=== PATIENT | female | born 1950 | race African-American/Black ===

== ENCOUNTER 2017-12-18 13:21 | Emergency (ER) | payer OTHER ==
--- OUTSIDE RECORDS SUMMARY | 2017-12-18 13:23 | XMS REPORT | Clinical Summary ---
:1950 Author Organization [facility] Address [address] [place] [address] Care Team Providers Name Role Phone Asked, No Pcp Primary Care Provider Unavailable Allergies Not on File Current Medications Not on file Active Problems Not on file Social History Tobacco Use Types Packs/Day Years Used Date Never Assessed Sex Assigned at Date Recorded Not on file Last Filed Vital Signs Not on file Plan of Treatment Health Maintenance Due Date Last Done Comments BREAST CANCER SCREENING 10/18/2001 COLON CANCER SCREENING 10/18/2001 SHINGRIX VACCINE (#1) 10/18/2001 ZOSTER VACCINE 2011 PNEUMOCOCCAL POLYSACCHARIDE VACCINE AGE 65 AND OVER 10/18/2016 PNEUMOCOCCAL-13 10/18/2016 INFLUENZA VACCINE 11/04/2017 Results Not on fileafter 12/17/2016 Insurance Payer Benefit Plan / Group Subscriber ID Type Phone Address [employer] PPO xxxxxxxxxxx PPO [phone] [id number]
[2017-12-18] MEDS ORDERED: ONDANSETRON 4 MG/2 ML VIAL ONE (14:13)
[2017-12-18 14:50] LABS: Absolute Lymphocytes (CBC) 1.6 K/uL (0.7-4.9); Absolute Monocytes 0.6 K/uL (0.1-1.3); Absolute Neutrophil 3.8 K/uL (1.8-8.0); Basophils % 0.5 % (0-1.3); Eosinophils % 0.4 % (0-4.4); Hematocrit 39.3 % (36.0-45.0); Lymphocytes % 26.1 % (15.3-44.8); MCH 29.9 pg (27.0-35.0); MCV 88.1 fL (80-100); MPV 8.8 fL (7.6-11.3); Monocytes % 9.7 % (3.3-12.3); RBC Red Blood Cell Count 4.46 M/uL (3.86-4.86)
[2017-12-18 15:08] LABS: ALT/SGPT 25 U/L (12-78); AST/SGOT 22 U/L (15-37); Albumin 4.1 g/dL (3.4-5.0); Alkaline Phosphatase 59 U/L (45-117); BUN Blood Urea Nitrogen 11 mg/dL (7-18); Bicarbonate 29 mmol/L (21-32); Bilirubin Direct 0.1 mg/dL (0-0.2); Bilirubin Total 0.4 mg/dL (0.2-1.0); CKMB Creatine Kinase MB 1.5 ng/mL (0.3-3.6); Creatine Phosphokinase 138 U/L (26-192); Glucose Level 83 mg/dL (74-106); Magnesium 2.1 mg/dL (1.8-2.4); NT PRO-BNP 82 pg/mL (<125); Potassium 3.8 mmol/L (3.5-5.1); Protein, Total 7.7 g/dL (6.4-8.2); Sodium Level 140 mmol/L (136-145); Troponin (Emerg Dept Use Only) < 0.02 ng/mL (0.0-0.045)
[2017-12-18 15:24] LABS: Protime INR 1.02
--- NOTE | 2017-12-18 15:42 | RAD REPORT ---
EXAM DESCRIPTION: CT - Head C Spine Cap Jeff Mei - 12/18/2017 3:28 pm CLINICAL HISTORY: Fall, head, neck, chest and abdomen pain COMPARISON: CT head September 2014 TECHNIQUE: Axial [address] head images were obtained. Axial [address] cervical spine images were obtaine d with sagittal and coronal reconstruction images reviewed. During dynamic enhancement of 100mL non-i onic contrast, axial 5 mm images of the chest, abdomen and pelvis were obtained. All CT scans are performed using dose optimization technique as appropriate and may include automated exposure control or mA/KV adjustment according to patient size. FINDINGS: No intracranial hemorrhage, mass or edema. No midline shift or abnormal fluid collection. Mastoid air cells and paranasal sinuses are clear. No skull fracture. CT cervical spine imaging shows normal height. No subluxation abnormality. No disc space narrowing se en. There is posterior endplate spurring and calcification changes at C5-6 and C6-7. C6-7 is borderli ne to mildly stenotic in the central canal. No significant foraminal encroachment. No paraspinal mass or hematoma seen. Central canal detail is inherently limited. Concerns for traumatic disc herniation or traumatic cord injury can be further addressed with MR imaging. CT chest shows no pneumothorax, pulmonary contusion or pleural fluid collection. No mediastinal hemat supriya and the aorta and pulmonary arteries are unremarkable. No chest will mass or abnormal axillary fi nding. No displaced rib fracture or other significant bony finding. Patient has significant disc and endplate degenerative changes at T11-12. CT abdomen and pelvis show no injury to solid abdominal viscera. Gallbladder and biliary tree are unr emarkable. No bowel injury or significant finding. No free air or pneumatosis. There is a trace amoun t of fluid in the cul-de-sac. Attenuation does not suggest that this is intraperitoneal blood. There is no abnormality as a source for fluid. Uterus is absent. Ovaries are absent or atrophic. No urinary bladder abnormality. Bladder is mostly contracted. Phleboliths are present. Lumbar disc and bony degenerative changes are present. No pathologic or acute bone process. IMPRESSION: No hemorrhage, edema or acute CT Head finding. Degenerative change without fracture. Borderline to mild central spinal stenosis present at C6-7. No acute CT chest finding. No acute CT abdomen or pelvis finding. The trace amount of free fluid in the cul-de-sac is not suspec stacy to be blood. An acute abdominal or pelvic process is not identifiable.
--- NOTE | 2017-12-18 15:44 | ER ---
Nurse's Notes [facility] Name: Malia Mattson Age: 67 yrs Sex: Female : 1950 Arrival Date: 12/18/2017 Time: 13:27 Bed 5 Private MD: None, None Diagnosis: Fall due to bumping against object;Pain in right shoulder;Pain in right hip Presentation: 12/18 13:32 Presenting complaint: Patient states: Reports fall after missing 1 step at 0900 this aj morning and fell onto bottom. Reports pain all over. Care prior to arrival: None. Mechanism of Injury: Fall from standing position. Trauma event details: Injury occurred in the [facility], Injury occurred: in a public building. Injury occurred: December 18, 2017 Injury occurred at: 09:00. 13:32 Acuity: RONALD 2 aj 13:32 Method Of Arrival: Ambulatory aj 14:00 Transition of care: patient was not received from another setting of care. Onset of jl7 symptoms was December 18, 2017 at 09:00. Risk Assessment: Do you want to hurt yourself or someone else? Patient reports no desire to harm self or others. Initial Sepsis Screen: Does the patient meet any 2 criteria? No. Patient's initial sepsis screen is negative. Does the patient have a suspected source of infection? No. Patient's initial sepsis screen is negative. Trauma Activation: Not Applicable Physician: ED Physician; Name: ; Notified At: ; Arrived At: Physician: General Surgeon; Name: ; Notified At: ; Arrived At: Physician: Radiology; Name: ; Notified At: ; Arrived At: Physician: Respiratory; Name: ; Notified At: ; Arrived At: Physician: Lab; Name: ; Notified At: ; Arrived At: Historical: - Allergies: 13:37 No Known Drug Allergies; aj - Home Meds: 13:37 alprazolam 0.5 mg Oral tab as needed [Active]; atorvastatin 10 mg oral tab 1 tab once aj daily [Active]; candesartan 32 mg oral tab 1 tab once daily [Active]; citalopram 20 mg tab 1 tab once daily [Active]; diltiazem HCl 120 mg Oral cpER 1 cap once daily [Active]; meclizine 25 mg Oral tab 1 tab [Active]; promethazine 25 mg Oral tab 1 tab once daily [Active]; sumatriptan 100 mg as needed [Active]; - PMHx: 13:37 Anxiety; Hyperlipidemia; Hypertension; aj - PSHx: 13:37 Hysterectomy; aj - Immunization history: Last tetanus immunization: - up to date. - Social history:: Smoking status: Patient uses tobacco products. - Ebola Screening: : Patient negative for fever greater than or equal to 101.5 degrees Fahrenheit, and additional compatible Ebola Virus Disease symptoms Patient denies exposure to infectious person Patient denies travel to an Ebola-affected area in the 21 days before illness onset No symptoms or risks identified at this time. - Family history:: not pertinent. Screenin:00 Fall Risk Fall in past 12 months (25 points). IV access (20 points). Total Coyle Fall jl7 Scale indicates High Risk Score (45 or more points). Fall prevention measures have been instituted. Side Rails Up X 2 Placed Close to Nursing Station Frequent Obs/Assessments Occuring As available patient and family educated on Fall Prevention Program and Strategies. 14:37 Abuse screen: Denies threats or abuse. Denies injuries from another. Nutritional jl7 screening: No deficits noted. Tuberculosis screening: No symptoms or risk factors identified. Primary Survey: 13:32 A: Airway: patent. Breathing/Chest: Respiratory pattern: regular, Respiratory effort: aj spontaneous, unlabored. Circulation: Skin color: pink, Skin temperature: warm, dry. Disability Alert. 14:00 Reassessment Airway Airway Patent Breathing/Chest Respiratory pattern Regular jl7 Respiratory effort Spontaneous Unlabored Circulation Color Eland. Secondary Survey: 14:00 HEENT: No deficits noted. Gastrointestinal: No deficits noted. : No deficits noted. jl7 Musculoskeletal: Range of motion: intact in all extremities, Swelling present in palmar aspect of right forearm Tenderness present in lumbar area, right mid back and right low back Reports pain in right shoulder, right forearm, right hip, mid back to lower back and over to the right side of the mid and lower back. Assessment: 13:32 General: Appears in no apparent distress. comfortable, Behavior is calm, cooperative, aj appropriate for age. Pain: Complains of pain in scalp, back and buttocks. Neuro: Level of Consciousness is awake, alert, obeys commands, Oriented to person, place, time, situation, Appropriate for age. Respiratory: Airway is patent Respiratory effort is even, unlabored, Respiratory pattern is regular, symmetrical. Derm: Skin is intact, is healthy with good turgor, Skin is pink, warm \T\ dry. normal. Musculoskeletal: Reports pain in scalp, back and buttocks. 15:45 Reassessment: Pt will be discharged once radiology results are back. jl7 16:21 Reassessment: Pt reports increased pain, provider notified of pain and BP, see MAR for jl7 orders. Pt denies urinary symptoms, refuses urine culture at this time. Vital Signs: 13:32 BP 185 / 95; Pulse 76; Resp 15; Temp 97.4; Pulse Ox 98% on R/A; Weight 63.5 kg; Height aj 5 ft. 3 in. (160.02 cm); 14:00 BP 195 / 97; Pulse 67; Resp 18; Pulse Ox 96% ; Pain 9/10; jl7 14:30 BP 177 / 83; Pulse 62; Resp 16 S; Pulse Ox 96% on R/A; Pain 7/10; jl7 15:58 BP 187 / 84; Pulse 62; Resp 16 S; Pulse Ox 97% on R/A; jl7 16:20 BP 191 / 91; Pulse 67; Resp 16 S; Pulse Ox 100% on R/A; Pain 9/10; jl7 13:32 Body Mass Index 24.80 (63.50 kg, 160.02 cm) aj Margarito Coma Score: 13:32 Eye Response: spontaneous(4). Verbal Response: oriented(5). Motor Response: obeys aj commands(6). Total: 15. Trauma Score (Adult): 13:32 Eye Response: spontaneous(1); Verbal Response: oriented(1); Motor Response: obeys aj commands(2); Systolic BP: > 89 mm Hg(4); Respiratory Rate: 10 to 29 per min(4); Margarito Score: 15; Trauma Score: 12 ED Course: 13:27 Patient arrived in ED. mr 13:28 None, None is Private Physician. mr 13:33 Triage completed. aj 13:37 Arm band placed on left wrist. Patient placed in waiting room, Patient notified of wait aj time. 13:57 Heidi Nazario, JEREMY is Primary Nurse. jl7 14:00 Patient maintains SpO2 saturation greater than 95% on room air. Thermoregulation: warm jl7 blanket given to patient. 14:04 Darrell Norris MD is Attending Physician. demarco 14:26 Initial lab(s) drawn, by me, sent to lab. Inserted saline lock: 22 gauge in left jl7 antecubital area, using aseptic technique. Blood collected. 14:37 Patient has correct armband on for positive identification. Bed in low position. Call jl7 light in reach. Side rails up X2. 14:38 EKG done, by reliability technologist. reviewed by Darrell Norris MD. 3 14:50 Radiology exam delayed due to lab results not completed at this time. (BUN/Creatinine). sj 15:11 XRAY Chest (1 view) In Process Unspecified. EDMS 15:11 Shoulder Right (2 View) XRAY In Process Unspecified. EDMS 15:11 Forearm Right XRAY In Process Unspecified. EDMS 15:11 Pelvis XRAY In Process Unspecified. EDMS 15:11 Hip Right 2 View XRAY In Process Unspecified. EDMS 15:28 CT Traumagram (Head C Spine CAP W Con) In Process Unspecified. EDMS 16:23 No provider procedures requiring assistance completed. IV discontinued, intact, jl7 bleeding controlled, No redness/swelling at site. Pressure dressing applied. Administered Medications: 14:19 Drug: Zofran 4 mg Route: IVP; Site: left antecubital; jl7 14:37 Follow up: Response: No adverse reaction jl7 14:21 Drug: fentaNYL (PF) 50 mcg Route: IVP; Site: left antecubital; jl7 14:37 Follow up: Response: No adverse reaction; Pain is decreased jl7 16:19 Drug: Jbphh 10 mg-325 mg 1 tabs Route: PO; jl7 16:19 Follow up: Response: Medication administered at discharge. jl7 16:24 Not Given (pt to CT then dc'd): NS 0.9% 1000 ml IV at 125 ml/hr continuous jl7 Intake: 16:20 PO: 0ml; Total: 0ml. jl7 Output: 16:20 Urine: 0ml; Total: 0ml. jl7 Outcome: 15:43 Discharge ordered by . demarco 16:22 Discharged to home ambulatory, with family. jl7 16:22 Condition: stable 16:22 Discharge instructions given to patient, Instructed on discharge instructions, follow up and referral plans. medication usage, Demonstrated understanding of instructions, follow-up care, medications, Prescriptions given X 2. 16:22 Patient's length of stay was not longer than 2 hours. 16:24 Patient left the ED. jl7 Signatures: Dispatcher [employer] EDFunmilayo Tapia, Darrell Rodriguez RN, MD MD cha Rivera, Maria mr Jones, Heidi Camargo RN RN jl7 Shonda Godoy 3 Corrections: (The following items were deleted from the chart) 14:37 12:19 Zofran 4 mg IVP in left antecubital sen jl7
--- NOTE | 2017-12-18 15:44 | EDPHYS ---
Physician Documentation [facility] Name: Malia Mattson Age: 67 yrs Sex: Female : 1950 Arrival Date: 12/18/2017 Time: 13:27 Bed 5 Private MD: None, None ED Physician Darrell Norris HPI: 12/18 14:48 This 67 yrs old Black Female presents to ER via Ambulatory with complaints of Fall demarco Injury. 14:48 Details of fall: The patient fell from an upright position, while walking. Onset: The demarco symptoms/episode began/occurred just prior to arrival. Associated injuries: The patient sustained injury to the head, neck injury, upper back injury, injury to the low back, right hip, decreased range of motion, painful injury. Severity of symptoms: At their worst the symptoms were mild, moderate, in the emergency department the symptoms are unchanged. The patient has not experienced similar symptoms in the past. Historical: - Allergies: 13:37 No Known Drug Allergies; aj - Home Meds: 13:37 alprazolam 0.5 mg Oral tab as needed [Active]; atorvastatin 10 mg oral tab 1 tab once aj daily [Active]; candesartan 32 mg oral tab 1 tab once daily [Active]; citalopram 20 mg tab 1 tab once daily [Active]; diltiazem HCl 120 mg Oral cpER 1 cap once daily [Active]; meclizine 25 mg Oral tab 1 tab [Active]; promethazine 25 mg Oral tab 1 tab once daily [Active]; sumatriptan 100 mg as needed [Active]; - PMHx: 13:37 Anxiety; Hyperlipidemia; Hypertension; aj - PSHx: 13:37 Hysterectomy; aj - Immunization history: Last tetanus immunization: - up to date. - Social history:: Smoking status: Patient uses tobacco products. - Ebola Screening: : Patient negative for fever greater than or equal to 101.5 degrees Fahrenheit, and additional compatible Ebola Virus Disease symptoms Patient denies exposure to infectious person Patient denies travel to an Ebola-affected area in the 21 days before illness onset No symptoms or risks identified at this time. - Family history:: not pertinent. ROS: 14:48 Constitutional: Negative for fever, chills, and weight loss, Eyes: Negative for injury, demarco pain, redness, and discharge, ENT: Negative for injury, pain, and discharge, Neck: Negative for injury, pain, and swelling, Cardiovascular: Negative for chest pain, palpitations, and edema, Respiratory: Negative for shortness of breath, cough, wheezing, and pleuritic chest pain, Back: Negative for injury and pain, : Negative for injury, bleeding, discharge, and swelling, Skin: Negative for injury, rash, and discoloration, Neuro: Negative for headache, weakness, numbness, tingling, and seizure, Psych: Negative for depression, anxiety, suicide ideation, homicidal ideation, and hallucinations, Allergy/Immunology: Negative for hives, rash, and allergies, Endocrine: Negative for neck swelling, polydipsia, polyuria, polyphagia, and marked weight changes, Hematologic/Lymphatic: Negative for swollen nodes, abnormal bleeding, and unusual bruising. 14:48 Abdomen/GI: Positive for abdominal pain, of the right upper quadrant and right lower quadrant. Exam: 14:48 Constitutional: This is a well developed, well nourished patient who is awake, alert, demarco and in no acute distress. Head/Face: Normocephalic, atraumatic. Eyes: Pupils equal round and reactive to light, extra-ocular motions intact. Lids and lashes normal. Conjunctiva and sclera are non-icteric and not injected. Cornea within normal limits. Periorbital areas with no swelling, redness, or edema. ENT: Nares patent. No nasal discharge, no septal abnormalities noted. Tympanic membranes are normal and external auditory canals are clear. Oropharynx with no redness, swelling, or masses, exudates, or evidence of obstruction, uvula midline. Mucous membranes moist. Chest/axilla: Normal chest wall appearance and motion. Nontender with no deformity. No lesions are appreciated. Cardiovascular: Regular rate and rhythm with a normal S1 and S2. No gallops, murmurs, or rubs. Normal PMI, no JVD. No pulse deficits. Respiratory: Lungs have equal breath sounds bilaterally, clear to auscultation and percussion. No rales, rhonchi or wheezes noted. No increased work of breathing, no retractions or nasal flaring. Female : Normal external genitalia. Skin: Warm, dry with normal turgor. Normal color with no rashes, no lesions, and no evidence of cellulitis. Neuro: Awake and alert, GCS 15, oriented to person, place, time, and situation. Cranial nerves II-XII grossly intact. Motor strength 5/5 in all extremities. Sensory grossly intact. Cerebellar exam normal. Normal gait. Psych: Awake, alert, with orientation to person, place and time. Behavior, mood, and affect are within normal limits. 14:48 Neck: External neck: is normal, C-spine: no acute changes, Thyroid: appears normal, Trachea: is midline with no obvious abnormalities, ROM/movement: pain, limited range of motion, that is mild. 14:48 Abdomen/GI: Inspection: abdomen appears normal, Bowel sounds: normal, Palpation: mild abdominal tenderness, in the right upper quadrant and right lower quadrant, Liver: no appreciated palpable abnormalities, Hernia: not appreciated. Vital Signs: 13:32 BP 185 / 95; Pulse 76; Resp 15; Temp 97.4; Pulse Ox 98% on R/A; Weight 63.5 kg; Height aj 5 ft. 3 in. (160.02 cm); 14:00 BP 195 / 97; Pulse 67; Resp 18; Pulse Ox 96% ; Pain 9/10; jl7 14:30 BP 177 / 83; Pulse 62; Resp 16 S; Pulse Ox 96% on R/A; Pain 7/10; jl7 15:58 BP 187 / 84; Pulse 62; Resp 16 S; Pulse Ox 97% on R/A; jl7 16:20 BP 191 / 91; Pulse 67; Resp 16 S; Pulse Ox 100% on R/A; Pain 9/10; jl7 13:32 Body Mass Index 24.80 (63.50 kg, 160.02 cm) Sheridan Coma Score: 13:32 Eye Response: spontaneous(4). Verbal Response: oriented(5). Motor Response: obeys aj commands(6). Total: 15. Trauma Score (Adult): 13:32 Eye Response: spontaneous(1); Verbal Response: oriented(1); Motor Response: obeys aj commands(2); Systolic BP: > 89 mm Hg(4); Respiratory Rate: 10 to 29 per min(4); Sheridan Score: 15; Trauma Score: 12 MDM: 14:04 Patient medically screened. [facility] 14:48 Data reviewed: vital signs, nurses notes, lab test result(s), EKG, radiologic studies, [facility] CT scan, plain films. 09/14 14:09 Order name: Basic Metabolic Panel; Complete Time: 15:40 [facility] 12/18 14:09 Order name: CBC with Diff; Complete Time: 15:40 [facility] 12/18 14:09 Order name: Ckmb; Complete Time: 15:40 [facility] 12/18 14:09 Order name: CPK; Complete Time: 15:40 [facility] 12/18 14:09 Order name: LFT's; Complete Time: 15:40 [facility] 12/18 14:09 Order name: Magnesium; Complete Time: 15:40 [facility] 12/18 14:09 Order name: NT PRO-BNP; Complete Time: 15:40 [facility] 12/18 14:09 Order name: PT-INR; Complete Time: 15:40 [facility] 12/18 14:09 Order name: Ptt, Activated; Complete Time: 15:40 [facility] 12/18 14:09 Order name: Troponin (emerg Dept Use Only); Complete Time: 15:40 [facility] 12/18 14:09 Order name: XRAY Chest (1 view); Complete Time: 16:04 [facility] 12/18 14:09 Order name: Shoulder Right (2 View) XRAY; Complete Time: 16:04 [facility] 12/18 14:09 Order name: Forearm Right XRAY; Complete Time: 16:04 [facility] 12/18 14:09 Order name: EKG; Complete Time: 14:09 [facility] 12/18 14:09 Order name: Cardiac monitoring; Complete Time: 14:26 [facility] 12/18 14:09 Order name: EKG - Nurse/Tech; Complete Time: 14:26 [facility] 12/18 14:09 Order name: IV Saline Lock; Complete Time: 14:26 [facility] 12/18 14:09 Order name: Labs collected and sent; Complete Time: 14:26 [facility] 12/18 14:09 Order name: O2 Per Protocol; Complete Time: 14:26 [facility] 12/18 14:09 Order name: O2 Sat Monitoring; Complete Time: 14:26 [facility] 12/18 14:09 Order name: Pelvis XRAY; Complete Time: 16:04 [facility] 12/18 14:09 Order name: Hip Right 2 View XRAY; Complete Time: 16:04 [facility] 12/18 14:09 Order name: CT Traumagram (Head C Spine CAP W Con); Complete Time: 16:04 [facility] Administered Medications: 14:19 Drug: Zofran 4 mg Route: IVP; Site: left antecubital; jl7 14:37 Follow up: Response: No adverse reaction jl7 14:21 Drug: fentaNYL (PF) 50 mcg Route: IVP; Site: left antecubital; jl7 14:37 Follow up: Response: No adverse reaction; Pain is decreased jl7 16:19 Drug: [place] 10 mg-325 mg 1 tabs Route: PO; jl7 16:19 Follow up: Response: Medication administered at discharge. jl7 16:24 Not Given (pt to CT then dc'd): NS 0.9% 1000 ml IV at 125 ml/hr continuous jl7 Disposition: 12/18/17 15:43 Discharged to Home. Impression: Fall due to bumping against object, Pain in right shoulder, Pain in right hip. - Condition is Stable. - Discharge Instructions: Joint Pain, Fall Prevention in the Home, Musculoskeletal Pain, Shoulder Pain, Shoulder Range of Motion Exercises, Shoulder Pain, [id number], Hip Pain. - Prescriptions for Tylenol- Codeine #3 300-30 mg Oral Tablet - take 2 tablets by ORAL route every 6 hours As needed; 26 tablet. Motrin IB 200 mg Oral Tablet - take 2 tablet by ORAL route every 6 hours As needed as needed with food; 30 tablet. - Medication Reconciliation Form, Thank You Letter, Antibiotic Education, Prescription Opioid Use form. - Follow up: Emergency Department; When: 2 - 3 days; Reason: Recheck today's complaints, Continuance of care, Re-evaluation by your physician. - Problem is new. - Symptoms have improved. Signatures: Dispatcher [employer] [facility] Funmilayo Petersen RN RN aj Anderson, Corey, MD MD cha Leal, Jahala, RN RN jl7 Corrections: (The following items were deleted from the chart) 16:21 15:43 Urine Culture+BA.LAB.BRZ ordered. [facility] 16:24 15:43 12/18/2017 15:43 Discharged to Home. Impression: Fall due to bumping against jl7 object; Pain in right shoulder; Pain in right hip. Condition is Stable. Discharge Instructions: Joint Pain, Fall Prevention in the Home, Musculoskeletal Pain, Shoulder Pain, Shoulder Range of Motion Exercises, Shoulder Pain, [id number], Hip Pain. Prescriptions for Tylenol-Codeine #3 300-30 mg Oral Tablet - take 2 tablets by ORAL route every 6 hours As needed; 26 tablet, Motrin IB 200 mg Oral Tablet - take 2 tablet by ORAL route every 6 hours As needed as needed with food; 30 tablet. and Forms are Medication Reconciliation Form, Thank You Letter, Antibiotic Education, Prescription Opioid Use. Follow up: Emergency Department; When: 2 - 3 days; Reason: Recheck today's complaints, Continuance of care, Re-evaluation by your physician. Problem is new. Symptoms have improved. demarco
--- NOTE | 2017-12-18 15:52 | RAD REPORT ---
EXAM DESCRIPTION: RAD - Chest Single View - 12/18/2017 3:12 pm CLINICAL HISTORY: Fall, chest pain COMPARISON: October 2013 TECHNIQUE: AP portable chest image was obtained 1456 hours . FINDINGS: No pulmonary contusion or acute lung parenchymal process. Heart and vasculature are normal . No measurable pleural effusion and no pneumothorax. No acute bone finding. No sternoclavicular or a cromioclavicular joint acute finding. No acute aortic findings suspected. IMPRESSION: No acute cardiopulmonary process. No significant interval change.
--- NOTE | 2017-12-18 15:53 | RAD REPORT ---
EXAM DESCRIPTION: Shoulder Right 2 View - 12/18/2017 3:14 pm CLINICAL HISTORY: Fall, shoulder pain COMPARISON: None. TECHNIQUE: Internal and external rotation views of the right shoulder were obtained. FINDINGS: No fracture or dislocation of the proximal humerus. Mild AC joint degenerative changes are present without separation. Small inferiorly directed clavicle spur present. Acromial humeral joint space is normal with no abnormal calcifications. IMPRESSION: Mild AC joint degenerative change. No acute shoulder finding.
--- NOTE | 2017-12-18 15:53 | RAD REPORT ---
EXAM DESCRIPTION: RAD - Forearm Right - 12/18/2017 3:14 pm CLINICAL HISTORY: Fall, arm pain COMPARISON: None. FINDINGS: No fracture is identified. There is no dislocation or periosteal reaction noted. No foreign body or other soft tissue abnormality. IMPRESSION: Negative right forearm examination.
--- NOTE | 2017-12-18 15:54 | RAD REPORT ---
EXAM DESCRIPTION: RAD - Hip Right 2 View - 12/18/2017 3:14 pm CLINICAL HISTORY: Hip pain, fall COMPARISON: None. FINDINGS: AP and frog-leg views of the right hip were obtained. There is no fracture or dislocation . No acute or destructive bony process seen. IMPRESSION: Negative right hip examination for acute findings.
--- NOTE | 2017-12-18 15:54 | RAD REPORT ---
EXAM DESCRIPTION: RAD - Pelvis - 12/18/2017 3:12 pm CLINICAL HISTORY: Fall, pelvic pain COMPARISON: None. TECHNIQUE: AP imaging of the pelvis was obtained. FINDINGS: No fracture or dislocation of either proximal femur. No fracture of the bony pelvis. Pubic symphysis and SI joints are normal range. Numerous phleboliths are present. No suspicious soft tissu e finding. IMPRESSION: Negative pelvis for acute or suspicious finding.
[2017-12-18] MEDS ORDERED: HYDROCODONE/APAP 10/325 TAB ONE (16:19)
[2017-12-18 16:50] VITALS: TEMP 97.4
[2017-12-18 16:55] VITALS: BP 191/91; O2SAT 100
--- NOTE | 2017-12-19 12:11 | EKG ---
Test Date: 2017-12-18 Test Time: 14:29:40 Phone Manager: PURVI MEASUREMENT RESULTS: Intervals: Rate: 57 [place]: 154 QRSD: 88 QT: 476 QTc: 463 [place]: P: 69 [place]: 154 QRS: 68 T: 42 INTERPRETIVE STATEMENTS: Sinus bradycardia Otherwise normal ECG Compared to ECG 10/03/2014 17:08:41 Sinus rhythm no longer present Atrial premature complex(es) no longer present Electronically Signed On 12-19-17 12:07:43 CDT by Nir Shields
== END 2017-12-18 16:24 | disposition home or self-care (01) ==
LOC: ER 13:21
DX: M25.551 Pain in right hip (principal); W18.00XA Striking against unspecified object with subsequent fall, initial encounter; Y93.01 Activity, walking, marching and hiking; Y92.9 Unspecified place or not applicable; Z72.0 Tobacco use; I10 Essential (primary) hypertension; E78.5 Hyperlipidemia, unspecified; F41.9 Anxiety disorder, unspecified
CPT/HCPCS: 36415; 70450; 71045; 71260; 72125; 72170; 74177; 80048; 80076; 82550; 82553; 83735; 83880; 84484; 85025; 85610; 85730; 93005; 96374; 96375; 99284; J2405; Q9967

== ENCOUNTER 2019-03-31 14:43 | Emergency (ER) | payer OTHER ==
[2019-03-31 16:05] LABS: Absolute Lymphocytes (CBC) 1.1 K/uL (0.7-4.9); Basophils % 0.4 % (0-1.3); Hematocrit 40.3 % (36.0-45.0); Lymphocytes % 21.8 % (15.3-44.8); MPV 8.2 fL (7.6-11.3); RBC Red Blood Cell Count 4.68 M/uL (3.86-4.86)
[2019-03-31 16:06] LABS: Protime INR 1.02
[2019-03-31 16:22] LABS: ALT/SGPT 58 U/L (12-78); AST/SGOT 31 U/L (15-37); Albumin 3.7 g/dL (3.4-5.0); Alkaline Phosphatase 87 U/L (45-117); BUN Blood Urea Nitrogen 15 mg/dL (7-18); Bicarbonate 28 mmol/L (21-32); Bilirubin Direct 0.1 mg/dL (0-0.2); Bilirubin Total 0.3 mg/dL (0.2-1.0); Glucose Level 205 mg/dL (74-106); Magnesium 2.4 mg/dL (1.8-2.4); NT PRO-BNP 48 pg/mL (<125); Potassium 3.7 mmol/L (3.5-5.1); Protein, Total 7.4 g/dL (6.4-8.2); Sodium Level 140 mmol/L (136-145); Troponin (Emerg Dept Use Only) < 0.02 ng/mL (0.0-0.045)
--- NOTE | 2019-03-31 16:42 | RAD REPORT ---
EXAM DESCRIPTION: RAD - Chest Single View - 03/31/2019 3:39 pm CLINICAL HISTORY: Chest pain COMPARISON: December 2017 TECHNIQUE: AP portable chest image was obtained 1530 hours . FINDINGS: Lungs are clear. Heart and vasculature are normal. No measurable pleural effusion and no p neumothorax. No acute bony abnormality seen. No acute aortic findings suspected. IMPRESSION: No acute cardiopulmonary process. No significant change from comparison.
[2019-03-31] MEDS ORDERED: KETOROLAC 30 MG/ML INJ ONE (18:34)
[2019-03-31] MEDS ORDERED: PANTOPRAZOLE 40 MG INJ ONE (18:34)
[2019-03-31] MEDS ORDERED: WATER FOR INJ,STERILE 10 ML ONE (18:35)
--- NOTE | 2019-03-31 18:47 | ER ---
Nurse's Notes [facility] Name: Malia Mattson Age: 68 yrs Sex: Female : 1950 Arrival Date: 03/31/2019 Time: 14:44 Bed 27 Private MD: Amilcar Jon T Diagnosis: Chest pain, unspecified;Zoster [herpes zoster] Presentation: 03/31 15:10 Presenting complaint: Patient states: Chest pain for 4 - 5 days now. It started as an ca1 little annoying pain and got progressively worse. Last night was the absolute worse. Pain is at 7/10 at this time. Reports lightheadedness. Denies N/V/D. Transition of care: patient was not received from another setting of care. Onset of symptoms was March 31, 2019. Risk Assessment: Do you want to hurt yourself or someone else? Patient reports no desire to harm self or others. Initial Sepsis Screen: Does the patient meet any 2 criteria? No. Patient's initial sepsis screen is negative. Does the patient have a suspected source of infection? No. Patient's initial sepsis screen is negative. Care prior to arrival: None. 15:10 Method Of Arrival: Wheelchair ca1 15:10 Acuity: RONALD 3 ca1 Historical: - Allergies: 15:15 metformin; ca1 - Home Meds: 15:15 alprazolam 0.5 mg Oral tab 1 tab as needed [Active]; atorvastatin 10 mg Oral tab 1 tab ca1 once daily [Active]; citalopram 20 mg tab 1 tab once daily [Active]; diltiazem HCl 120 mg Oral cpER 1 cap once daily [Active]; meclizine 25 mg Oral tab 1 tab [Active]; promethazine 25 mg Oral tab 1 tab once daily [Active]; glimepiride Oral [Active]; - PMHx: 15:15 Anxiety; Hyperlipidemia; Hypertension; Diabetes - NIDDM; Vertigo; Acid Reflux; ca1 - PSHx: 15:15 Hysterectomy; ca1 - Immunization history:: Adult Immunizations up to date, Pneumococcal vaccine is up to date, Flu vaccine is up to date. - Social history:: Smoking status: Patient/guardian denies using tobacco, never smoked. - Ebola Screening: : Patient negative for fever greater than or equal to 101.5 degrees Fahrenheit, and additional compatible Ebola Virus Disease symptoms Patient denies exposure to infectious person Patient denies travel to an Ebola-affected area in the 21 days before illness onset No symptoms or risks identified at this time. Screenin:20 Abuse screen: Denies threats or abuse. Denies injuries from another. Nutritional ca1 screening: No deficits noted. Tuberculosis screening: No symptoms or risk factors identified. Fall Risk IV access (20 points). Assessment: 15:20 General: Appears in no apparent distress. comfortable, Behavior is calm, cooperative, ca1 appropriate for age. Pain: Complains of pain in anterior aspect of left upper chest and left breast Pain radiates to back Pain currently is 7 out of 10 on a pain scale. Quality of pain is described as pressure, Pain began gradually, 4- 5 days ago Is continuous. Pain: Aggravated by repositioning. Neuro: Level of Consciousness is awake, alert, obeys commands, Oriented to person, place, time, situation, Appropriate for age. Cardiovascular: Heart tones S1 S2 present Capillary refill < 3 seconds Patient's skin is warm and dry. Rhythm is sinus rhythm. Respiratory: Airway is patent Respiratory effort is even, unlabored, Respiratory pattern is regular, symmetrical. GI: Abdomen is flat, non-distended, Bowel sounds present X 4 quads. Abd is soft and non tender X 4 quads. : No deficits noted. No signs and/or symptoms were reported regarding the genitourinary system. EENT: No deficits noted. No signs and/or symptoms were reported regarding the EENT system. Derm: Skin is intact, is healthy with good turgor, Skin is pink, warm \T\ dry. Musculoskeletal: Circulation, motion, and sensation intact. Capillary refill < 3 seconds, Range of motion: intact in all extremities. 16:11 Reassessment: Patient appears in no apparent distress at this time. No changes from ca1 previously documented assessment. Patient is alert, oriented x 3, equal unlabored respirations, skin warm/dry/pink. 17:02 Reassessment: Patient appears in no apparent distress at this time. Patient is alert, ca1 oriented x 3, equal unlabored respirations, skin warm/dry/pink. 17:45 Reassessment: Patient appears in no apparent distress at this time. Patient is alert, ca1 oriented x 3, equal unlabored respirations, skin warm/dry/pink. 18:30 Reassessment: Patient appears in no apparent distress at this time. Patient is alert, ca1 oriented x 3, equal unlabored respirations, skin warm/dry/pink. Patient states feeling better. 19:44 Reassessment: Patient appears in no apparent distress at this time. Patient is alert, ca1 oriented x 3, equal unlabored respirations, skin warm/dry/pink. Patient states feeling better. Vital Signs: 15:15 BP 137 / 89; Pulse 89; Resp 17 S; Pulse Ox 100% on R/A; Weight 64.41 kg (R); Height 5 ca1 ft. 4 in. (162.56 cm) (R); Pain 7/10; 16:11 BP 141 / 88; Pulse 86; Resp 13 S; Temp 98.3(O); Pulse Ox 100% on R/A; ca1 17:02 BP 153 / 95; Pulse 88; Resp 17 S; Pulse Ox 100% on R/A; ca1 17:45 BP 153 / 97; Pulse 80; Resp 15 S; Pulse Ox 99% on R/A; ca1 18:30 BP 147 / 83; Pulse 77; Resp 17 S; Pulse Ox 100% on R/A; ca1 19:40 BP 146 / 86; Pulse 83; Resp 18 S; Pulse Ox 98% on R/A; ca1 15:15 Body Mass Index 24.37 (64.41 kg, 162.56 cm) ca1 ED Course: 14:44 Patient arrived in ED. rg4 14:45 Amilcar Jon MD is Private Physician. rg4 15:12 Triage completed. ca1 15:15 Arm band placed on right wrist. EKG completed in triage. Results shown to MD. ca1 15:20 Patient has correct armband on for positive identification. Placed in gown. Bed in low ca1 position. Call light in reach. Side rails up X2. groundwater monitoring technician on. Pulse ox on. NIBP on. Warm blanket given. 15:21 Tracy Hall FNP-C is PHCP. snw 15:21 Yasmany Carreon MD is Attending Physician. snw 15:34 Nancy Loyd RN is Primary Nurse. ca1 15:41 Chest Single View XRAY In Process Unspecified. EDMS 15:46 No provider procedures requiring assistance completed. Inserted saline lock: 22 gauge ca1 in left antecubital area, using aseptic technique. Blood collected. Patient maintains SpO2 saturation greater than 95% on room air. 15:46 Initial lab(s) drawn, by me, sent to lab. ca1 18:12 Troponin (emerg Dept Use Only) Sent. ca1 18:45 Amilcar Jon MD is Referral Physician. snw 19:45 IV discontinued, intact, bleeding controlled, No redness/swelling at site. Pressure ca1 dressing applied. Administered Medications: 18:30 Drug: TORadol 30 mg Route: IVP; Site: left antecubital; ca1 19:25 Follow up: Response: No adverse reaction; Pain is decreased ca1 18:32 Drug: ProTONIX 40 mg Route: IVP; Site: left antecubital; ca1 19:25 Follow up: Response: No adverse reaction; Pain is decreased ca1 Outcome: 18:46 Discharge ordered by . snw 19:45 Discharged to home ambulatory, with family. ca1 19:45 Condition: stable 19:45 Discharge instructions given to patient, family, Instructed on discharge instructions, ca1 follow up and referral plans. medication usage, Demonstrated understanding of instructions, follow-up care, medications, Prescriptions given X 3. 19:46 Patient left the ED. ca1 Signatures: Dispatcher [employer] EDMS Tracy Hall, ZINC CHLORIDE OPERATOR-C ZINC CHLORIDE OPERATOR-CsnHali Moreland rg4 Nancy Loyd, RN RN ca1
--- NOTE | 2019-03-31 18:48 | EDPHYS ---
Physician Documentation [facility] Name: Malia Mattson Age: 68 yrs Sex: Female : 1950 Arrival Date: 03/31/2019 Time: 14:44 Bed 27 Private MD: Amilcar Jon T ED Physician Yasmany Carreon HPI: 03/31 15:59 This 68 yrs old Black Female presents to ER via Wheelchair with complaints of Chest snw Pain. 15:59 Onset: The symptoms/episode began/occurred suddenly, 4 day(s) ago, and became snw persistent. Associated signs and symptoms: Pertinent negatives: abdominal pain, congestion, cough, fever, shortness of breath, sore throat, vomiting. Modifying factors: The patient symptoms are alleviated by remaining still, the patient symptoms are aggravated by movement. It is unknown whether or not the patient has had similar symptoms in the past. The patient has been recently seen by a physician: the patient's primary care provider, Dr. Byrne. recently changed from metformin to glipizide 2mg BID, blood sugar readings much improved. Historical: - Allergies: 15:15 metformin; ca1 - Home Meds: 15:15 alprazolam 0.5 mg Oral tab 1 tab as needed [Active]; atorvastatin 10 mg Oral tab 1 tab ca1 once daily [Active]; citalopram 20 mg tab 1 tab once daily [Active]; diltiazem HCl 120 mg Oral cpER 1 cap once daily [Active]; meclizine 25 mg Oral tab 1 tab [Active]; promethazine 25 mg Oral tab 1 tab once daily [Active]; glimepiride Oral [Active]; - PMHx: 15:15 Anxiety; Hyperlipidemia; Hypertension; Diabetes - NIDDM; Vertigo; Acid Reflux; ca1 - PSHx: 15:15 Hysterectomy; ca1 - Immunization history:: Adult Immunizations up to date, Pneumococcal vaccine is up to date, Flu vaccine is up to date. - Social history:: Smoking status: Patient/guardian denies using tobacco, never smoked. - Ebola Screening: : Patient negative for fever greater than or equal to 101.5 degrees Fahrenheit, and additional compatible Ebola Virus Disease symptoms Patient denies exposure to infectious person Patient denies travel to an Ebola-affected area in the 21 days before illness onset No symptoms or risks identified at this time. ROS: 15:58 Constitutional: Negative for fever, chills, and weight loss, Eyes: Negative for injury, snw pain, redness, and discharge, ENT: Negative for injury, pain, and discharge, Neck: Negative for injury, pain, and swelling, Respiratory: Negative for shortness of breath, cough, wheezing, and pleuritic chest pain, Abdomen/GI: Negative for abdominal pain, nausea, vomiting, diarrhea, and constipation, Back: Negative for injury and pain, : Negative for injury, bleeding, discharge, and swelling, MS/Extremity: Negative for injury and deformity, Skin: Negative for injury, rash, and discoloration, Neuro: Negative for headache, weakness, numbness, tingling, and seizure. 15:58 Cardiovascular: Positive for chest pain, with movement, radiates through to back, no rad to jaw/neck/throat. Exam: 15:57 Constitutional: This is a well developed, well nourished patient who is awake, alert, snw and in no acute distress. Head/Face: Normocephalic, atraumatic. Eyes: Pupils equal round and reactive to light, extra-ocular motions intact. Lids and lashes normal. Conjunctiva and sclera are non-icteric and not injected. Cornea within normal limits. Periorbital areas with no swelling, redness, or edema. ENT: Nares patent. No nasal discharge, no septal abnormalities noted. Tympanic membranes are normal and external auditory canals are clear. Oropharynx with no redness, swelling, or masses, exudates, or evidence of obstruction, uvula midline. Mucous membranes moist. Neck: Trachea midline, no thyromegaly or masses palpated, and no cervical lymphadenopathy. Supple, full range of motion without nuchal rigidity, or vertebral point tenderness. No Meningismus. Chest/axilla: Normal chest wall appearance and motion. Nontender with no deformity. No lesions are appreciated. Respiratory: Lungs have equal breath sounds bilaterally, clear to auscultation and percussion. No rales, rhonchi or wheezes noted. No increased work of breathing, no retractions or nasal flaring. Abdomen/GI: Soft, non-tender, with normal bowel sounds. No distension or tympany. No guarding or rebound. No evidence of tenderness throughout. Back: No spinal tenderness. No costovertebral tenderness. Full range of motion. Skin: Warm, dry with normal turgor. Normal color with no rashes, no lesions, and no evidence of cellulitis. MS/ Extremity: Pulses equal, no cyanosis. Neurovascular intact. Full, normal range of motion. Neuro: Awake and alert, GCS 15, oriented to person, place, time, and situation. Cranial nerves II-XII grossly intact. Motor strength 5/5 in all extremities. Sensory grossly intact. Cerebellar exam normal. Normal gait. Psych: Awake, alert, with orientation to person, place and time. Behavior, mood, and affect are within normal limits. 15:57 Cardiovascular: Rate: normal, Rhythm: regular, Pulses: no pulse deficits are appreciated, Heart sounds: normal, Edema: is not appreciated, JVD: is not appreciated. Vital Signs: 15:15 BP 137 / 89; Pulse 89; Resp 17 S; Pulse Ox 100% on R/A; Weight 64.41 kg (R); Height 5 ca1 ft. 4 in. (162.56 cm) (R); Pain 7/10; 16:11 BP 141 / 88; Pulse 86; Resp 13 S; Temp 98.3(O); Pulse Ox 100% on R/A; ca1 17:02 BP 153 / 95; Pulse 88; Resp 17 S; Pulse Ox 100% on R/A; ca1 17:45 BP 153 / 97; Pulse 80; Resp 15 S; Pulse Ox 99% on R/A; ca1 18:30 BP 147 / 83; Pulse 77; Resp 17 S; Pulse Ox 100% on R/A; ca1 19:40 BP 146 / 86; Pulse 83; Resp 18 S; Pulse Ox 98% on R/A; ca1 15:15 Body Mass Index 24.37 (64.41 kg, 162.56 cm) ca1 MDM: 15:26 Patient medically screened. snw 19:03 Data reviewed: vital signs, nurses notes. Data interpreted: Pulse oximetry: on room air snw is 99 %. Interpretation: normal. Counseling: I had a detailed discussion with the patient and/or guardian regarding: the historical points, exam findings, and any diagnostic results supporting the discharge/admit diagnosis, lab results, radiology results, the need for outpatient follow up, to return to the emergency department if symptoms worsen or persist or if there are any questions or concerns that arise at home. Special discussion: Based on the patient's history, exam, and Dx evaluation, there is no indication for emergent intervention or inpatient Tx. It is understood by the patient/guardian that if the Sx's persist or worsen they need to return immediately for re-evaluation. Based on the history and exam findings, there is no indication for further emergent testing or inpatient evaluation. I discussed with the patient/guardian the need to see the primary care provider for further evaluation of the symptoms. 19:34 ED course: pt showed me a "raw area" where underwire sits. + vesicles. Pt states she snw had a zoster vaccine very recently. 03/31 15:23 Order name: Basic Metabolic Panel; Complete Time: 16:28 snw 03/31 15:23 Order name: CBC with Diff; Complete Time: 16:28 snw 03/31 15:23 Order name: LFT's; Complete Time: 16:28 snw 03/31 15:23 Order name: Magnesium; Complete Time: 16:28 snw 03/31 15:23 Order name: NT PRO-BNP; Complete Time: 16:28 snw 03/31 15:23 Order name: PT-INR; Complete Time: 16:13 snw 03/31 15:02 Order name: EKG; Complete Time: 15:02 sr5 03/31 15:23 Order name: Chest Single View XRAY; Complete Time: 16:52 snw 03/31 15:23 Order name: Troponin (emerg Dept Use Only); Complete Time: 16:28 snw 03/31 17:48 Order name: EKG; Complete Time: 17:48 snw 03/31 17:48 Order name: Troponin (emerg Dept Use Only); Complete Time: 18:45 snw 03/31 15:23 Order name: Cardiac monitoring; Complete Time: 15:55 snw 03/31 15:23 Order name: EKG - Nurse/Tech; Complete Time: 15:55 snw 03/31 15:23 Order name: IV Saline Lock; Complete Time: 16:12 snw 03/31 15:23 Order name: Labs collected and sent; Complete Time: 15:55 snw 03/31 15:23 Order name: O2 Per Protocol; Complete Time: 15:56 snw 03/31 15:23 Order name: O2 Sat Monitoring; Complete Time: 15:56 snw 03/31 17:48 Order name: EKG - Nurse/Tech; Complete Time: 18:09 snw Administered Medications: 18:30 Drug: TORadol 30 mg Route: IVP; Site: left antecubital; ca1 19:25 Follow up: Response: No adverse reaction; Pain is decreased ca1 18:32 Drug: ProTONIX 40 mg Route: IVP; Site: left antecubital; ca1 19:25 Follow up: Response: No adverse reaction; Pain is decreased ca1 Disposition: 04/01 05:55 Co-signature as Attending Physician, Yasmany Carreon MD I agree with the assessment and rn plan of care. Disposition: 03/31/19 18:46 Discharged to Home. Impression: Chest pain, unspecified, Zoster [herpes zoster]. - Condition is Stable. - Discharge Instructions: Nonspecific Chest Pain, Gastroesophageal Reflux Disease, Adult, Hypertension, Aspirin and Your Heart. - Prescriptions for Protonix 40 mg Oral Tablet - take 1 tablet by ORAL route once daily; 30 tablet. orphenadrine citrate 100 mg Oral Tablet Sustained Release - take 1 tablet by ORAL route 2 times per day As needed; 20 tablet. Valtrex 1 g Oral Tablet - take 1 tablet by ORAL route every 8 hours for 7 days; 21 tablet. - Medication Reconciliation Form, Thank You Letter, Antibiotic Education, Prescription Opioid Use form. - Follow up: Amilcar Jon MD; When: 1 - 2 days; Reason: Recheck today's complaints, Continuance of care, Re-evaluation by your physician. Follow up: Emergency Department; When: As needed; Reason: Worsening of condition. Signatures: Dispatcher [employer] EDFL Tracy Hall, DONALD-C [id number] PROGRAMMER ANALYST-Csnw Yasmany Carreon MD MD rn Acob, JEREMY Cruz RN ca1 Corrections: (The following items were deleted from the chart) 03/31 19: 18:46 03/31/2019 18:46 Discharged to Home. Impression: Chest pain, unspecified. snw Condition is Stable. Forms are Medication Reconciliation Form, Thank You Letter, Antibiotic Education, Prescription Opioid Use. Follow up: Amilcar Jon; When: 1 - 2 days; Reason: Recheck today's complaints, Continuance of care, Re-evaluation by your physician. Follow up: Emergency Department; When: As needed; Reason: Worsening of condition. snw 19:46 19:26 03/31/2019 18:46 Discharged to Home. Impression: Chest pain, unspecified; Zoster ca1 [herpes zoster]. Condition is Stable. Discharge Instructions: Nonspecific Chest Pain, Gastroesophageal Reflux Disease, Adult, Hypertension, Aspirin and Your Heart. Prescriptions for Protonix 40 mg Oral Tablet - take 1 tablet by ORAL route once daily; 30 tablet, orphenadrine citrate 100 mg Oral Tablet Sustained Release - take 1 tablet by ORAL route 2 times per day As needed; 20 tablet. and Forms are Medication Reconciliation Form, Thank You Letter, Antibiotic Education, Prescription Opioid Use. Follow up: Amilcar Jon; When: 1 - 2 days; Reason: Recheck today's complaints, Continuance of care, Re-evaluation by your physician. Follow up: Emergency Department; When: As needed; Reason: Worsening of condition. cherry
[2019-03-31] MEDS ORDERED: ACYCLOVIR 400 MG TABLET ONE (19:41)
[2019-03-31 21:11] VITALS: TEMP 98.3
[2019-03-31 21:16] VITALS: BP 146/86; O2SAT 98
--- NOTE | 2019-04-01 13:49 | EKG ---
Test Date: 2019-03-31 Test Time: 18:05:30 Label Printing Machinist: GERSON MEASUREMENT RESULTS: Intervals: Rate: 85 [place]: 158 QRSD: 86 QT: 396 QTc: 471 [place]: P: 69 [place]: 158 QRS: 52 T: 52 INTERPRETIVE STATEMENTS: Normal sinus rhythm Normal ECG Compared to ECG 03/31/2019 15:08:04 No significant changes Electronically Signed On 04-01-19 13:46:34 INDUCTION COORDINATION POWER ENGINEER by Nir Shields
--- NOTE | 2019-04-01 13:49 | EKG ---
Test Date: 2019-03-31 Test Time: 15:08:04 Shipping And Receiving Clerk: JASBIR MEASUREMENT RESULTS: Intervals: Rate: 84 MD: 154 QRSD: 84 QT: 372 QTc: 439 [place]: P: 74 [place]: 154 QRS: 63 T: 64 INTERPRETIVE STATEMENTS: Normal sinus rhythm Normal ECG Compared to ECG 12/18/2017 14:29:40 Sinus bradycardia no longer present Electronically Signed On 04-01-19 13:46:55 SEAFOOD PROCESS WORKER by Nir Shields
== END 2019-03-31 19:46 | disposition home or self-care (01) ==
LOC: ER 14:43
DX: B02.9 Zoster without complications (principal); I10 Essential (primary) hypertension; F41.9 Anxiety disorder, unspecified; E11.9 Type 2 diabetes mellitus without complications; E78.5 Hyperlipidemia, unspecified; Z88.8 Allergy status to other drugs, medicaments and biological substances
CPT/HCPCS: 93005 ×2; 85025; 80048; 36415; 83735; 85610; 80076; 84484 ×2; 83880; 71045; 96375; 96374; 99285; C9113

== ENCOUNTER 2020-10-02 21:33 | Emergency (ER) | payer OTHER ==
[2020-10-02 22:47] LABS: Absolute Lymphocytes (CBC) 2.1 K/uL (0.7-4.9); Basophils % 0.7 % (0-1.3); Hematocrit 37.6 % (36.0-45.0); Lymphocytes % 34.6 % (15.3-44.8); MPV 8.5 fL (7.6-11.3)
[2020-10-02] MEDS ORDERED: NA CHLORIDE 0.9% 1,000 ML ONE (22:55)
[2020-10-02] MEDS ORDERED: METOCLOPRAMIDE 10 MG/2mL INJ ONE (22:55)
[2020-10-02] MEDS ORDERED: KETOROLAC 30 MG/ML INJ ONE (22:55)
[2020-10-02 22:58] LABS: ALT/SGPT 27 U/L (12-78); AST/SGOT 21 U/L (15-37); Albumin 3.8 g/dL (3.4-5.0); Alkaline Phosphatase 81 U/L (45-117); BUN Blood Urea Nitrogen 12 mg/dL (7-18); Bicarbonate 28 mmol/L (21-32); Bilirubin Direct 0.1 mg/dL (0-0.2); Bilirubin Total 0.4 mg/dL (0.2-1.0); Glucose Level 110 mg/dL (74-106); NT PRO-BNP 26 pg/mL (<125); Potassium 3.6 mmol/L (3.5-5.1); Protein, Total 7.7 g/dL (6.4-8.2); Sodium Level 142 mmol/L (136-145); Troponin (Emerg Dept Use Only) < 0.02 ng/mL (0.0-0.045)
[2020-10-02 23:02] LABS: Protime INR 1.07
[2020-10-02] MEDS ORDERED: LORazepam 2 MG/ML VIAL ONE (23:20)
--- NOTE | 2020-10-02 23:20 | ER ---
Nurse's Notes [facility] Name: Malia Mattson Age: 69 yrs Sex: Female : 1950 Arrival Date: 10/02/2020 Time: 21:36 Bed 19 Private MD: Diagnosis: Headache Presentation: 10/02 21:57 Chief complaint: Patient states: Reports she has been having chills, palpitations for ea the past few days. Reports she has had tingling in her face and her blood pressure has been elevated. Coronavirus screen: At this time, the client does not indicate any symptoms associated with coronavirus-19. Ebola Screen: No symptoms or risks identified at this time. Initial Sepsis Screen: Does the patient meet any 2 criteria? No. Patient's initial sepsis screen is negative. Does the patient have a suspected source of infection? No. Patient's initial sepsis screen is negative. Risk Assessment: Do you want to hurt yourself or someone else? Patient reports no desire to harm self or others. Onset of symptoms was October 02, 2020. 21:57 Method Of Arrival: Ambulatory ea 21:57 Acuity: RONALD 3 ea Triage Assessment: 23:40 General: Behavior is calm, cooperative, appropriate for age. ld1 Historical: - Allergies: 22:00 metformin; ea - PMHx: 22:00 Vertigo; Hypertension; Hyperlipidemia; Diabetes - NIDDM; Anxiety; acid reflux; ea - Immunization history:: Adult Immunizations up to date. - Social history:: Smoking status: Patient denies any tobacco usage or history of. - Family history:: not pertinent. Screenin:59 Abuse screen: Denies threats or abuse. Nutritional screening: No deficits noted. ea Tuberculosis screening: No symptoms or risk factors identified. Fall Risk None identified. Assessment: 22:00 General: Appears in no apparent distress. uncomfortable. ld1 22:00 Pain: Denies pain. Neuro: Level of Consciousness is awake, alert, obeys commands, ld1 Oriented to person, place, time, situation. Cardiovascular: Capillary refill < 3 seconds Patient's skin is warm and dry. Rhythm is sinus rhythm. Respiratory: Airway is patent Respiratory effort is even, unlabored, Respiratory pattern is regular, symmetrical. GI: Abdomen is flat, non-distended. : No signs and/or symptoms were reported regarding the genitourinary system. EENT: No signs and/or symptoms were reported regarding the EENT system. Derm: No signs and/or symptoms reported regarding the dermatologic system. Musculoskeletal: No signs and/or symptoms reported regarding the musculoskeletal system. Vital Signs: 21:57 BP 179 / 103; Pulse 87; Resp 18; Temp 98.7; Pulse Ox 99% on R/A; Weight 62.14 kg; ea Height 5 ft. 3 in. (160.02 cm); 22:00 BP 135 / 100; Pulse 70; Resp 18; Pulse Ox 100% on R/A; ld1 23:32 BP 148 / 78; Pulse 66; Resp 18; Pulse Ox 100% on R/A; ld1 21:57 Body Mass Index 24.27 (62.14 kg, 160.02 cm) ea ED Course: 21:36 Patient arrived in ED. cf2 21:51 Flaca Quinn MD is Attending Physician. ma2 21:59 Triage completed. ea 21:59 Arm band placed on right wrist. Patient placed in an exam room, on a stretcher, on ea pulse oximetry. 21:59 Patient has correct armband on for positive identification. Bed in low position. Call ea light in reach. 22:10 CT Head Brain wo Cont In Process Unspecified. EDMS 22:14 XRAY Chest (1 view) In Process Unspecified. EDMS 22:22 Gilda Mitchell, JEREMY is Primary Nurse. ld1 22:28 Initial lab(s) drawn, by me, sent to lab. Inserted saline lock: 20 gauge in left tt3 antecubital area, using aseptic technique. Blood collected. 23:34 No provider procedures requiring assistance completed. IV discontinued, intact, ld1 bleeding controlled, No redness/swelling at site. Administered Medications: 22:40 Drug: NS 0.9% 1000 ml Route: IV; Rate: 1 bolus; Site: left antecubital; ld1 23:04 Follow up: Response: No adverse reaction; IV Status: Infusion continued ld1 22:40 Drug: Ketorolac 30 mg Route: IVP; Site: left antecubital; ld1 23:04 Follow up: Response: No adverse reaction ld1 22:40 Drug: Reglan (metoCLOPramide) 10 mg Route: IVP; Site: left antecubital; ld1 23:04 Follow up: Response: No adverse reaction ld1 23:04 Drug: Ativan (LORazepam) 1 mg Route: IVP; Site: left antecubital; ld1 23:04 Follow up: Response: No adverse reaction ld1 Outcome: 23:20 Discharge ordered by . aniceto 23:40 Discharged to home ambulatory. ld1 23:40 Condition: stable 23:40 Discharge instructions given to patient, Instructed on discharge instructions, follow up and referral plans. medication usage, Demonstrated understanding of instructions, follow-up care, medications. 23:40 Patient left the ED. ld1 Signatures: Dispatcher [employer] Nilam Esquivel RN RN Flaca Salmon MD MD ma2 Denver Breen 2 Frank Ibrahim 3 Gilda Mitchell RN RN ld1 Corrections: (The following items were deleted from the chart) 22:00 22:00 Allergies: No Known Drug Allergies; brian torres
--- NOTE | 2020-10-02 23:21 | EDPHYS ---
Physician Documentation [facility] Name: Malia Mattson Age: 69 yrs Sex: Female : 1950 Arrival Date: 10/02/2020 Time: 21:36 Bed 19 Private MD: ED Physician Flaca Quinn HPI: 10/02 22:44 This 69 yrs old Black Female presents to ER via Ambulatory with complaints of ma2 Palpitations, CHILLS/SWEATS. 22:44 The patient presents with a history of heart racing. Onset: The symptoms/episode ma2 began/occurred gradually, 1 day(s) ago. Associated signs and symptoms: Pertinent positives: anxiety, Pertinent negatives: fever, syncope, unusual stressors, vomiting. Associated signs and symptoms: Pertinent negatives: chest pain, lightheadedness, nausea, SOB. Severity of symptoms: At their worst the symptoms were very mild in the emergency department the symptoms have resolved. The patient has experienced similar episodes in the past. Historical: - Allergies: 22:00 metformin; ea - PMHx: 22:00 Vertigo; Hypertension; Hyperlipidemia; Diabetes - NIDDM; Anxiety; acid reflux; ea - Immunization history:: Adult Immunizations up to date. - Social history:: Smoking status: Patient denies any tobacco usage or history of. - Family history:: not pertinent. ROS: 22:44 Constitutional: Negative for fever, chills, and weight loss. ma2 22:44 All other systems are negative. Exam: 22:44 Constitutional: This is a well developed, well nourished patient who is awake, alert, ma2 and in no acute distress. Head/Face: Normocephalic, atraumatic. Eyes: Pupils equal round and reactive to light, extra-ocular motions intact. Lids and lashes normal. Conjunctiva and sclera are non-icteric and not injected. Cornea within normal limits. Periorbital areas with no swelling, redness, or edema. ENT: Nares patent. No nasal discharge, no septal abnormalities noted. Tympanic membranes are normal and external auditory canals are clear. Oropharynx with no redness, swelling, or masses, exudates, or evidence of obstruction, uvula midline. Mucous membranes moist. Neck: Trachea midline, no thyromegaly or masses palpated, and no cervical lymphadenopathy. Supple, full range of motion without nuchal rigidity, or vertebral point tenderness. No Meningismus. Chest/axilla: Normal chest wall appearance and motion. Nontender with no deformity. No lesions are appreciated. Cardiovascular: Regular rate and rhythm with a normal S1 and S2. No gallops, murmurs, or rubs. Normal PMI, no JVD. No pulse deficits. Respiratory: Lungs have equal breath sounds bilaterally, clear to auscultation and percussion. No rales, rhonchi or wheezes noted. No increased work of breathing, no retractions or nasal flaring. Abdomen/GI: Soft, non-tender, with normal bowel sounds. No distension or tympany. No guarding or rebound. No evidence of tenderness throughout. Back: No spinal tenderness. No costovertebral tenderness. Full range of motion. Skin: Warm, dry with normal turgor. Normal color with no rashes, no lesions, and no evidence of cellulitis. MS/ Extremity: Pulses equal, no cyanosis. Neurovascular intact. Full, normal range of motion. Neuro: Awake and alert, GCS 15, oriented to person, place, time, and situation. Cranial nerves II-XII grossly intact. Motor strength 5/5 in all extremities. Sensory grossly intact. Cerebellar exam normal. Normal gait. Vital Signs: 21:57 BP 179 / 103; Pulse 87; Resp 18; Temp 98.7; Pulse Ox 99% on R/A; Weight 62.14 kg; ea Height 5 ft. 3 in. (160.02 cm); 22:00 BP 135 / 100; Pulse 70; Resp 18; Pulse Ox 100% on R/A; ld1 23:32 BP 148 / 78; Pulse 66; Resp 18; Pulse Ox 100% on R/A; ld1 21:57 Body Mass Index 24.27 (62.14 kg, 160.02 cm) ea MDM: 21:51 Patient medically screened. ma2 22:44 PAUL Risk Score: Not Applicable. Differential diagnosis: arrythmia, dehydration, stress ma2 disorder. Data reviewed: vital signs, nurses notes. 23:19 Counseling: I had a detailed discussion with the patient and/or guardian regarding: the ma2 historical points, exam findings, and any diagnostic results supporting the discharge/admit diagnosis, the presence of at least one elevated blood pressure reading (>120/80) during this emergency department visit, the need for outpatient follow up. Response to treatment: the patient's symptoms have markedly improved after treatment. 10/02 21:44 Order name: Basic Metabolic Panel; Complete Time: 23:18 10/02 21:44 Order name: CBC with Diff; Complete Time: 23:18 10/02 21:44 Order name: LFT's; Complete Time: 23:18 10/02 21:44 Order name: Magnesium; Complete Time: 23:18 10/02 21:44 Order name: NT PRO-BNP; Complete Time: 23:18 10/02 21:44 Order name: PT-INR; Complete Time: 23:21 10/02 21:44 Order name: Troponin (emerg Dept Use Only); Complete Time: 23:18 10/02 21:44 Order name: XRAY Chest (1 view) 10/02 21:44 Order name: EKG; Complete Time: 21:45 10/02 21:57 Order name: CT Head Brain wo Cont 10/02 21:44 Order name: EKG - Nurse/Tech; Complete Time: 22:02 10/02 21:44 Order name: IV Saline Lock; Complete Time: 22:40 10/02 21:44 Order name: Labs collected and sent; Complete Time: 22:40 10/02 21:44 Order name: O2 Per Protocol; Complete Time: 22:02 10/02 21:44 Order name: O2 Sat Monitoring; Complete Time: 22:02 ma Administered Medications: 22:40 Drug: NS 0.9% 1000 ml Route: IV; Rate: 1 bolus; Site: left antecubital; ld1 23:04 Follow up: Response: No adverse reaction; IV Status: Infusion continued ld1 22:40 Drug: Ketorolac 30 mg Route: IVP; Site: left antecubital; ld1 23:04 Follow up: Response: No adverse reaction ld1 22:40 Drug: Reglan (metoCLOPramide) 10 mg Route: IVP; Site: left antecubital; ld1 23:04 Follow up: Response: No adverse reaction ld1 23:04 Drug: Ativan (LORazepam) 1 mg Route: IVP; Site: left antecubital; ld1 23:04 Follow up: Response: No adverse reaction ld1 Disposition Summary: 10/02/20 23:20 Discharge Ordered Location: Home ma2 Condition: Stable ma2 Diagnosis - Headache ma2 Followup: ma2 - With: Private Physician - When: Tomorrow - Reason: If symptoms return Discharge Instructions: - Discharge Summary Sheet ma2 - Hypertension, Adult, [id number] ma2 Forms: - Medication Reconciliation Form ma2 - Thank You Letter ma2 - Antibiotic Education ma2 - Prescription Opioid Use ma2 Prescriptions: - buspirone 5 mg Oral tablet - take 1 tablet by ORAL route 3 times per day; 60 tablet; Refills: 0, Product [facility] Selection Permitted - Reglan 10 mg Oral Tablet - take 1 tablet by ORAL route every 6 hours . take 30 minutes before meals and at [facility] bedtime; 100 tablet; Refills: 0, Product Selection Permitted Signatures: Dispatcher [employer] Nilam Esquivel RN RN ea Alzahri, Mohammad, MD MD ma2 Gilda Mitchell RN RN ld1 Corrections: (The following items were deleted from the chart) 22:00 22:00 Allergies: No Known Drug Allergies; brian torres
[2020-10-02 23:47] VITALS: TEMP 98.7
[2020-10-02 23:49] VITALS: O2SAT 100
[2020-10-02 23:50] VITALS: BP 148/78
--- NOTE | 2020-10-03 07:24 | RAD REPORT ---
EXAM DESCRIPTION: Neto Single View10/02/2020 10:14 pm CLINICAL HISTORY: Chest pain COMPARISON: 2018 FINDINGS: The lungs appear clear of acute infiltrate. The heart is normal size IMPRESSION: No acute abnormalities displayed
--- NOTE | 2020-10-03 13:35 | RAD REPORT ---
EXAM DESCRIPTION: CT - Head Brain Wo Cont - 10/03/2020 6:32 am CLINICAL HISTORY: Facial numbness. TECHNIQUE: Axial, coronal, and sagittal images through the brain were performed in the absence of in travenous contrast. This exam was performed according to our departmental dose-optimization program w hich includes use of Automated Exposure Control, adjustment of the mA and/or kV according to patient size and/or use of iterative reconstruction technique. COMPARISON: CT head from December 18, 2017. FINDINGS: There is diffuse age-appropriate atrophy throughout the brain parenchyma. Mild periventric ular white matter changes are present, and there is mild ex vacuo dilatation of the ventricular syste m. There is no intra-axial or extra-axial bleed. There is no mass or mass effect. The visualized paranasal sinuses and mastoid air cells are patent. No acute fracture is identified. IMPRESSION: 1. No acute intracranial abnormality identified. 2. Mild chronic age-related and microvascular ischemic changes. Electronically signed by: Jolene Zhu MD 10/02/2020 10:25 PM CDT Due to temporary technical issues with the PACS/Fluency reporting system, reports are being signed by the in house radiologists without review as a courtesy to insure prompt reporting. The interpreting radiologist is fully responsible for the content of the report.
--- NOTE | 2020-10-03 16:34 | EKG ---
Test Date: 2020-10-02 Test Time: 21:58:15 Rn Production: [place] MEASUREMENT RESULTS: Intervals: Rate: 73 NV: 146 QRSD: 82 QT: 390 QTc: 429 Enochs: P: 63 NV: 146 QRS: 51 T: 38 INTERPRETIVE STATEMENTS: Normal sinus rhythm Normal ECG Compared to ECG 03/31/2019 18:05:30 No significant changes Electronically Signed On 10-03-20 16:33:02 CDT by Nir Shields
== END 2020-10-02 23:40 | disposition home or self-care (01) ==
LOC: ER 21:33
DX: R51.9 Headache, unspecified (principal); I10 Essential (primary) hypertension; Z88.8 Allergy status to other drugs, medicaments and biological substances
CPT/HCPCS: 93005; 85025; 80048; 36415; 83735; 85610; 80076; 84484; 83880; 70450; 71045; 96375; 96374; 99284; J2765; J7030